=== PATIENT | female | born 1965 | race Caucasian/White ===

== ENCOUNTER 2022-03-11 01:59 | Emergency (ER) | payer OTHER, SELFPAY ==
[2022-03-11 02:38] VITALS: BP 111/64; PULSE 101; RESP 16; TEMP 36.8; O2SAT 95
--- NOTE | 2022-03-11 03:02 | ED_ITS ---
HPI - Nausea/Vomiting/Diarrhea General Chief complaint: Nausea/Vomiting Stated complaint: Vomiting, pain in LT arm, back, Lt leg, fever Time Seen by Provider: 03/11/22 02:21 History of Present Illness HPI Narrative: 56-year-old woman presenting to the emergency department accompanied by her significant other with concern of repeated vomiting. Started around 8 hours ago now. She has vomited maybe twice in the last 2-1/2 hours. No significant abdominal pain. No shortness of breath. Just felt exhausted and then when measured a temperature of 102.6?, thought it was time to present to the emergency department. Arrives afebrile temperature 98.2?. No diarrhea. She feels better now. Still nauseated. Still with headache and fatigued. She thought maybe she did have some Zofran at home but was not taken. 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 She is not vaccinated for COVID. Takes tamoxifen though it appears to be listed here is an allergy. Had a sense of heaviness in her left arm that has apparently resolved. No hematemesis. She does feel that this vomit was unusual from her historical vomiting and unusually clear. Denies dysuria Related Data Home Medications Medication Instructions Recorded Confirmed Lactobacillus acidophilus PO 02/06/22 02/06/22 acetaminophen 325 mg tablet mg PO PRN 02/06/22 02/06/22 ascorbic acid (vitamin C) 1,000 mg 1 g PO DAILY 02/06/22 02/06/22 tablet biotin 5 mg capsule mg PO DAILY 02/06/22 02/06/22 calcium carb and citrate-vitD3 PO 02/06/22 02/06/22 cholecalciferol (vitamin D3) 125 5,000 unit PO DAILY 02/06/22 02/06/22 mcg (5,000 unit) tablet evnpnteszx-GU-XL-acetaminophen 1 cap PO .Bedtime 02/06/22 02/06/22 6.25 mg-5 mg-10 mg-325 mg capsule dronabinol 2.5 mg capsule mg PO PRN 02/06/22 02/06/22 loratadine 10 mg tablet 10 mg PO DAILY 02/06/22 02/06/22 lorazepam 0.5 mg tablet mg PO PRN 02/06/22 02/06/22 magnesium oxide 400 mg (241.3 mg mg PO DAILY 02/06/22 02/06/22 magnesium) tablet omega-3 acid ethyl esters PO 02/06/22 02/06/22 potassium chloride PO 02/06/22 02/06/22 pyridoxine (vitamin B6) 100 mg mg PO DAILY 02/06/22 02/06/22 tablet Previous Rx's Medication Instructions Recorded nirmatrelvir 300 mg (150 mg See Rx Instructions PO .COMPLEX 03/11/22 x2)-ritonavir 100 mg tablet,dose #30 ea pack(EUA) (Paxlovid) Allergies Allergy/AdvReac Type Severity Reaction Status Date / Time tamoxifen Allergy Mild Unknown Verified 02/06/22 14:01 Review of Systems Status of ROS: Reports: 6 or more systems reviewed and unremarkable except as noted in History and below [facility] Medical History (Updated 03/11/22 @ 06:07 by Bear Byers MD) Chest wall pain Surgical History History of colonoscopy Status post mastectomy Status post vaginal hysterectomy Family History (Updated 12/27/21 @ 14:28 by Yadira Haq) Mother Diverticulitis of colon Father Hyperlipidemia Social History Smoking Status: Smoker, status unknown Do you use any of these nicotine containing products: None Second hand tobacco smoke exposure: No How often do you have a drink containing alcohol: never How often do you have six or more drinks on one occasion: Never AUDIT-C Alcohol total score: 0 Non-prescribed substance use: marijuana (any form) service: No Exam Narrative: Exam Narrative: Pleasant. NAD. Bespectacled. Breathing easily. Cranial nerves 2-12 are intact. Moving all extremities without difficulty. Well perfused peripherally. No extremity edema. Lungs appear to be clear. Cardiovascular tachycardic with regular rhythm. No murmur appreciated Abdomen is soft and mildly tender in the left mid upper abdomen. Skin is warm and dry without rash apparent. Has a tattoo volar distal right forearm Oropharynx is moist Const: Vital Signs, click to edit/add: Vital Signs - 24 hr 03/11/22 02:38 Temperature 98.2 F Pulse Rate [Left P ulse Oximeter] 101 H Respiratory Rate 16 Blood Pressure [Ri ght Upper Arm] 111/64 Pulse Oximetry 95 Oxygen Delivery Me thod Room Air Documenting provider has reviewed patient's vital signs: yes Course Course Hospital Course: Interview and exam as above. Will be initiating IV hydration and antiemetic. Looking for red flags in the labs. Reevaluation(s) Reevaluation #1: overall improved. covid positive Vital Signs Vital signs: Initial Vital Signs Temperature 98.2 F 03/11/22 02:38 Temperature Source Temporal Artery Scan 03/11/22 02:38 Pulse Rate 101 H 03/11/22 02:38 Pulse Rhythm 03/11/22 02:38 Respiratory Rate 16 03/11/22 02:38 Blood Pressure 111/64 03/11/22 02:38 Blood Pressure Mean 79 03/11/22 02:38 Blood Pressure Position Semi-Fowlers 03/11/22 02:38 Pulse Oximetry 95 03/11/22 02:38 Oxygen Delivery Method 03/11/22 02:38 Vital Signs Temperature 98.2 F 03/11/22 02:38 Pulse Rate 101 H 03/11/22 02:38 Respiratory Rate 16 03/11/22 02:38 Blood Pressure 111/64 03/11/22 02:38 Pulse Oximetry 95 03/11/22 02:38 Oxygen Delivery Method 03/11/22 02:38 Temperature 98.2 F 03/11/22 02:38 Pulse Rate 96 03/11/22 05:00 Respiratory Rate 16 03/11/22 05:00 Blood Pressure 105/69 03/11/22 05:00 Pulse Oximetry 96 03/11/22 05:00 Oxygen Delivery Method 03/11/22 05:00 MDM - Nausea/Vomiting/Diarrhea MDM Narrative Medical decision making narrative: bumped transaminases. related to covid or fatty liver? she would like a paxlovid script available though unsure if she will fill/take it. Lab Data Attestation: I reviewed the patient's lab results. Labs: Lab Results 03/11/22 03/11/22 03/11/22 Range/Units 03:10 03:10 03:15 WBC 7.16 (4.50-11.00) K/uL RBC 4.38 (4.00-5.20) m/uL Hgb 12.4 (12.0-16.0) gm/dL Hct 37.2 (33.0-51.0) % MCV 85 (80-100) fL MCH 28 (26-34) pg MCHC 33 (32-36) gm/dL RDW Coeff of Lore 12.4 (11.5-15.5) % Plt Count 217 (140-440) K/uL Neut % (Auto) 83.9 H (42.0-72.0) % Lymph % (Auto) 4.7 L (20-44) % [place] % (Auto) 10.2 (0.0-11.0) % Eos % (Auto) 0.4 (0.0-7.0) % Baso % (Auto) 0.7 (0.0-3.0) % Neut # (Auto) 6.00 (1.7-7.0) K/uL Lymph # (Auto) 0.30 L (0.90-2.90) K/uL [place] # (Auto) 0.70 (0.00-0.90) K/UL Eos # (Auto) 0.03 (0.00-0.50) K/uL Baso # (Auto) 0.05 (0.00-0.30) K/uL Abs Immat Gran (auto) 0.01 (0.00-0.30) K/uL Sodium 139 (135-149) mmol/L Potassium 3.9 (3.6-5.1) mmol/L Chloride 105 (96-114) mmol/L Carbon Dioxide 27 (20-32) mmol/L BUN 11 (7-30) mg/dL Creatinine 0.7 (0.5-1.5) mg/dL Estimated GFR 101 ml/min Glucose 120 H (60-115) mg/dL Calcium 8.6 (8.4-10.6) mg/dL Total Bilirubin 0.5 (0.1-1.5) mg/dL AST 72 H (12-35) U/L ALT 72 H (4-35) U/L Alkaline Phosphatase 69 (40-150) U/L Troponin I < 0.01 L (0.01-0.04) ng/mL C-Reactive Protein < 0.5 L (0.5-1.0) mg/dL Total Protein 6.8 (6.0-8.3) g/dL Albumin 4.1 (3.3-5.0) g/dL SARS-CoV-2 (PCR) POSITIVE SARS-CoV-2 A (Negative) Discharge Plan Discharge Clinical Impression: COVID-19, Dehydration, Vomiting Patient Disposition: Home w/ Parent or Adult Condition: Improved Additional Instructions: Focus on hydration. See this handout from the [facility]. You might follow up with them to see if they are doing antibody infusions. You might be a candidate. You will need to quarantine for 10 days from onset of symptoms. If you're beginning to feel more short of breath, get yourself an oxygen saturation monitor and return to the emergency department for oxygen saturations of 90% or less. Can take up to 800 mg of ibuprofen per dose or alternatively up to 500 mg of naproxen 2 times daily. Either can be combined with up to 1000 mg of acetaminophen per dose. Zofran from [facility]. Paxlovid also prescribed Prescriptions: New Paxlovid (EUA) 300 mg (150 mg x 2)-100 mg tablets,dose pack See Rx Instructions .ROUTE .COMPLEX Qty: 30 0RF Rx Instructions: take TWO 150 mg tablets of nirmatrelvir with ONE 100 mg tablet of ritonavir twice daily for 5 days No Action opgmknwpzm-JV-KQ-acetaminophen 6.25-5-10-325 mg capsule 1 cap PO .Bedtime cholecalciferol (vitamin D3) 125 mcg (5,000 unit) tablet 5,000 unit PO DAILY loratadine 10 mg tablet 10 mg PO DAILY pyridoxine (vitamin B6) 100 mg tablet PO DAILY magnesium oxide 400 mg (241.3 mg magnesium) tablet PO DAILY biotin 5 mg capsule PO DAILY acetaminophen 325 mg tablet PO PRN Rx Instructions: NO MORE THAN 4000 MG/DAY ascorbic acid (vitamin C) 1,000 mg tablet 1 g PO DAILY potassium chloride PO omega-3 acid ethyl esters PO Lactobacillus acidophilus PO calcium carb and citrate-vitD3 PO lorazepam 0.5 mg tablet PO PRN dronabinol 2.5 mg capsule PO PRN Follow Up/Referrals: Nedra Taylor PA-C [Primary Care Provider] - Stand Alone Forms: [employer] Info Instructions
[2022-03-11] MEDS: 0.9 % SODIUM CHLORIDE 1000 ml 1,000 ML IV (03:09)
[2022-03-11] MEDS: ONDANSETRON 2 MG/ML inj 4 MG IVP (03:09)
[2022-03-11 03:23] LABS: Basophils Absolute Auto 0.05 K/uL (0.00-0.30); Basophils Percent Auto 0.7 % (0.0-3.0); Eosinophils Absolute Auto 0.03 K/uL (0.00-0.50); Eosinophils Percent Auto 0.4 % (0.0-7.0); Hematocrit 37.2 % (33.0-51.0); Hemoglobin* 12.4 gm/dL (12.0-16.0); Immature Granulocytes Abs Auto 0.01 K/uL (0.00-0.30); Lymphocytes Percent Auto 4.7 % (20-44); Mean Corpuscular HGB Conc 33 gm/dL (32-36); Mean Corpuscular Hemoglobin 28 pg (26-34); Mean Corpuscular Volume 85 fL (80-100); Monocytes Percent Auto 10.2 % (0.0-11.0); Neutrophils Percent Auto 83.9 % (42.0-72.0); Platelet Count* 217 K/uL (140-440); RDW Coefficient of Variation % 12.4 % (11.5-15.5); Red Blood Count 4.38 m/uL (4.00-5.20); White Blood Count* 7.16 K/uL (4.50-11.00)
[2022-03-11 03:39] LABS: Albumin* 4.1 g/dL (3.3-5.0); Chloride* 105 mmol/L (96-114); Slide Review Reflex No; Sodium* 139 mmol/L (135-149)
[2022-03-11 03:40] LABS: Potassium* 3.9 mmol/L (3.6-5.1)
[2022-03-11 03:42] LABS: Alkaline Phosphatase* 69 U/L (40-150); Aspartate Amino Transferase* 72 U/L (12-35); Bilirubin Total* 0.5 mg/dL (0.1-1.5); Carbon Dioxide* 27 mmol/L (20-32); Creatinine* 0.7 mg/dL (0.5-1.5); Estimated Glomerular Filt Rate 101 ml/min; Total Protein* 6.8 g/dL (6.0-8.3)
[2022-03-11 03:43] LABS: Alanine Aminotransferase* 72 U/L (4-35); Blood Urea Nitrogen* 11 mg/dL (7-30); Calcium* 8.6 mg/dL (8.4-10.6); Glucose* 120 mg/dL (60-115)
[2022-03-11 03:56] LABS: C Reactive Protein* < 0.5 mg/dL (0.5-1.0); Troponin I* < 0.01 ng/mL (0.01-0.04)
[2022-03-11 04:00] VITALS: BP 104/65; PULSE 100; PULSE 99; RESP 16; RESP 18; O2SAT 94; O2SAT 95
[2022-03-11 04:33] LABS: SARS PCR* POSITIVE SARS-CoV-2 (Negative)
[2022-03-11 05:00] VITALS: BP 105/69; PULSE 96; RESP 16; O2SAT 96
== END 2022-03-11 06:30 | disposition home or self-care (01) ==
PROVIDERS: Emergency Provider Family Medicine; PCP Physician Assistant Medical
DX: U07.1 COVID-19 (principal); E86.0 Dehydration
CPT/HCPCS: 36415; 80053; 84484; 85025; 86140; 87040; 87635; 96374; 99283; 99284; J2405; J7030

== ENCOUNTER 2022-05-04 07:57 | Outpatient (CLI) | payer OTHER, SELFPAY ==
--- NOTE | 2022-05-04 08:15 | CRLHL7_ITS ---
For Patients: As a result of the Century Cures Act, medical imaging exams and procedure reports are released immediately into your electronic medical record. You may view this report before your referring provider. If you have questions, please contact your health care provider. BILATERAL SCREENING MAMMOGRAM WITH COMPUTER-AIDED DETECTION AND TOMOSYNTHESIS TECHNIQUE: CC and MLO views were obtained. These mammographic images have been obtained using full-field digital technique. These mammographic images were interpreted with the benefit of computer-aided detection. Breast Tomosynthesis was used in this interpretation. COMPARISON FILM: 05/02/21,04/26/20, 05/12/19. FINDINGS: There are scattered areas of fibroglandular density IMPRESSION: There is no radiographic evidence for malignancy. ASSESSMENT: BI-RADS Category 1: Negative RECOMMENDATION: Routine screening mammogram in 1 year. A lay language report of this examination will be provided to the patient. Bear Child M.D. Diagnostic Radiologist [email or web address] MARCIO/Dictated by: Bear Child MD @ 05/04/2022 9:37:00 AM (Electronically Signed)
--- NOTE | 2022-06-26 16:24 | ONC.NURNOTE ---
Oncology Provider and 6 month follow up Ms. Louise Lew follows at our clinic with DR. Jaja Estevez, [facility], for medical management of breast cancer, with tamoxifen therapy. She was last seen in clinic 12/2021. Ms. Louise Lew was informed that [facility] will no longer be providing services at our clinic after 07/14/22. She wishes to continue with her care at our clinic, and is agreeable to follow with [facility] in 2022. I have scheduled her with Judy Miles APRN, CNP for 08/02/22. She will be able to see Dr. Estevez again for her next 6 month appointment in January 2023. She is tolerating tamoxifen with the same side effects of muscle aches and foggy brain, but not new issues. Denies new lumps or bumps. Denies need for refills.
== END 2022-05-04 07:58 | disposition home or self-care (01) ==
LOC: MAMMO 07:57
PROVIDERS: PCP Physician Assistant Medical; Visit Provider Physician Assistant
DX: Z12.31 Encounter for screening mammogram for malignant neoplasm of breast (principal)
CPT/HCPCS: 77063; 77067

== ENCOUNTER 2022-10-10 08:53 | Outpatient (CLI) | payer OTHER, SELFPAY ==
--- NOTE | 2022-10-10 09:15 | CRLHL7_ITS ---
For Patients: As a result of the Century Cures Act, medical imaging exams and procedure reports are released immediately into your electronic medical record. You may view this report before your referring provider. If you have questions, please contact your health care provider. LEFT BREAST ULTRASOUND INDICATION: 57-year-old with history of LEFT breast cancer with mastectomy and implant reconstruction, here for a lump in her medial reconstructed breast that is slightly erythematous. TECHNIQUE: Left breast ultrasound was performed. FINDINGS: Ultrasound over the lump demonstrates a 0.5 x 0.4 x 0.4 cm hypoechoic lesion located in the skin at the 7 o`clock position, 13 cm from the nipple. This most likely reflects a sebaceous cyst. IMPRESSION: Patient???s lump corresponds to a superficial hypoechoic lesion in the skin measuring 0.5 x 0.4 x 0.4 cm and most likely reflects a sebaceous cyst. RECOMMENDATION: Clinical management. ASSESSMENT: BI-RADS Category 2: Benign A lay language report of this examination will be provided to the patient. LESA LAYTON M.D. Diagnostic/Breast Radiologist [email or web address] Transcribed: 12:[address]/Dictated by: Lesa Layton MD @ 10/10/2022 10:08:00 AM (Electronically Signed)
--- NOTE | 2022-10-10 10:15 | CRLHL7_ITS ---
For Patients: As a result of the Century Cures Act, medical imaging exams and procedure reports are released immediately into your electronic medical record. You may view this report before your referring provider. If you have questions, please contact your health care provider. INDICATION: Neck pain. Radiculopathy. Hand weakness. COMPARISON: None. TECHNIQUE: Sagittal T1, T2, and STIR sequences. Axial T2/gradient sequences. FINDINGS: Straightening of the normal cervical lordosis which may be due to muscle spasm or patient positioning. Trace degenerative anterolisthesis of C4 on C5 measures approximately 3 mm. Normal facet alignment. No fractures. No vertebral body loss of height. No ligamentous injury. No suspicious osseous lesions. Normal cord signal. No intradural mass or lesion. Cervical spondylosis with multilevel disc degeneration. Multilevel uncovertebral set degeneration. Degenerative fusion across the left C3-4 facet joints. C1-2: No spinal canal narrowing. C2-3: Posterior disc bulge. No narrowing of spinal canal. Uncovertebral joint hypertrophy results in mild narrowing of the right neural foramen. No narrowing of the left neural foramen. C3-4: No spinal canal neural foraminal narrowing. C4-5: Grade 1 anterolisthesis. Disc degeneration posterior disc bulge. No narrowing of spinal canal. Uncovertebral joint hypertrophy results in mild narrowing of bilateral foramina. C5-6: Disc generation posterior disc bulging disc osteophyte complex. Effacement of the ventral thecal sac. Mild narrowing of spinal canal. Uncovertebral joint hypertrophy results in moderate severe narrowing of the bilateral foramina. Potential impingement of the C6 nerve roots. C6-7: Disc degeneration. Left paracentral disc bulge. No spinal canal neural foraminal narrowing. C7-T1: No spinal canal or neural foraminal narrowing. IMPRESSION: 1. Straightening of the normal cervical lordosis. 2. Trace degenerative anterolisthesis of C4 on C5. Otherwise normal alignment. No fractures. 3. Normal cord signal. 4. Cervical spondylosis. 5. At C4-5, disc degeneration and posterior disc bulge. No narrowing of the spinal canal. Mild narrowing of the bilateral neural foramina 6. At C5-6, mild narrowing of spinal canal. Moderate to severe narrowing of the bilateral foramina. Potential impingement of the C6 nerve roots. Dictated by Colt Kay MD @ 10/10/2022 12:31:26 PM (Electronically Signed)
== END 2022-10-10 08:54 | disposition home or self-care (01) ==
LOC: US 08:53
PROVIDERS: PCP Physician Assistant Medical; Visit Provider Physician Assistant Medical
DX: N63.20 Unspecified lump in the left breast, unspecified quadrant (principal); M54.2 Cervicalgia; M54.12 Radiculopathy, cervical region; M47.812 Spondylosis without myelopathy or radiculopathy, cervical region; M40.50 Lordosis, unspecified, site unspecified; M50.321 Other cervical disc degeneration at C4-C5 level; Z85.3 Personal history of malignant neoplasm of breast
CPT/HCPCS: 72141; 76642

== ENCOUNTER 2023-04-15 17:28 | Outpatient (CLI) | payer OTHER, SELFPAY | END 2023-04-15 17:29 | disposition home or self-care (01) | LOC: NFLDREF 04-17 11:15 | PROVIDERS: PCP Physician Assistant Medical; Referring Provider Physician Assistant Medical; Visit Provider Nurse Practitioner Family | DX: R30.0 Dysuria (principal); N39.0 Urinary tract infection, site not specified | CPT/HCPCS: 87086; 87186 ==

== ENCOUNTER 2023-05-07 18:11 | Outpatient (CLI) | payer OTHER, SELFPAY ==
--- NOTE | 2023-05-07 18:30 | CRLHL7_ITS ---
For Patients: As a result of the Century Cures Act, medical imaging exams and procedure reports are released immediately into your electronic medical record. You may view this report before your referring provider. If you have questions, please contact your health care provider. RIGHT SCREENING MAMMOGRAM WITH COMPUTER-AIDED DETECTION AND TOMOSYNTHESIS TECHNIQUE: CC and MLO views were obtained. These mammographic images have been obtained using full-field digital technique. These mammographic images were interpreted with the benefit of computer-aided detection. Breast Tomosynthesis was used in this interpretation. COMPARISON FILM: 05/04/22 right, right diagnostic 05/08/21, 05/02/21 right. FINDINGS: There are scattered areas of fibroglandular density IMPRESSION: There is no radiographic evidence for malignancy. ASSESSMENT: BI-RADS Category 1: Negative RECOMMENDATION: Routine screening mammogram in 1 year. A lay language report of this examination will be provided to the patient. Bear Child M.D. Diagnostic Radiologist [email or web address] MARCIO/Dictated by: Bear Child MD @ 05/08/2023 12:40:00 PM (Electronically Signed)
== END 2023-05-07 18:12 | disposition home or self-care (01) ==
LOC: MAMMO 18:12
PROVIDERS: PCP Physician Assistant Medical; Visit Provider Physician Assistant Medical
DX: Z12.31 Encounter for screening mammogram for malignant neoplasm of breast (principal)
CPT/HCPCS: 77063; 77067

== ENCOUNTER 2024-05-08 07:46 | Outpatient (CLI) | payer OTHER, SELFPAY ==
--- NOTE | 2024-05-08 08:15 | CRLHL7_ITS ---
For Patients: As a result of the Cures Act, medical imaging exams and procedure reports are released immediately into your electronic medical record. You may view this report before your referring provider. If you have questions, please contact your health care provider. RIGHT SCREENING MAMMOGRAM WITH COMPUTER-AIDED DETECTION AND TOMOSYNTHESIS TECHNIQUE: CC and MLO views were obtained. These mammographic images have been obtained using full-field digital technique. These mammographic images were interpreted with the benefit of computer-aided detection. Breast Tomosynthesis was used in this interpretation. COMPARISON FILM: 05/07/23, 05/04/22, 05/08/21. FINDINGS: There are scattered areas of fibroglandular density IMPRESSION: There is no radiographic evidence for malignancy. ASSESSMENT: BI-RADS Category 1: Negative RECOMMENDATION: Routine screening mammogram in 1 year. A lay language report of this examination will be provided to the patient. Bear Child M.D. Diagnostic Radiologist [email or web address] MARCIO/Dictated by: Bear Child MD @ 05/08/2024 10:37:00 AM MARCIO/Dictated by: Bear Child MD @ 05/08/2024 10:37:00 AM (Electronically Signed)
== END 2024-05-08 07:47 | disposition home or self-care (01) ==
LOC: MAMMO 07:47
PROVIDERS: PCP Physician Assistant Medical; Visit Provider Physician Assistant
DX: Z12.31 Encounter for screening mammogram for malignant neoplasm of breast (principal)
CPT/HCPCS: 77063; 77067